=== PATIENT | male | born 1995 | race African-American/Black ===

== ENCOUNTER 2019-06-23 14:08 | Emergency (ER) | payer OTHER ==
[~2019-06-23] VITALS: Ht 170.2 cm; Wt 110.0 kg
[2019-06-23 17:05] VITALS: BP 133/68
== END 2019-06-23 19:59 | disposition left against medical advice (07) ==
LOC: ER 14:08
DX: R55 Syncope and collapse (principal); Z53.21 Procedure and treatment not carried out due to patient leaving prior to being seen by health care provider